=== PATIENT | male | born 1990 | race Caucasian/White ===

== ENCOUNTER 2020-02-19 12:58 | Emergency (ER) | payer BC, OTHER ==
--- OUTSIDE RECORDS SUMMARY | 2020-02-19 13:01 | XMS REPORT | Continuity of Care Document ---
:1990 Author Organization [facility] t Address [address] [place] [address] Care Team Providers Name Role Phone Unavailable Unavailable Unavailable Payers Payer Name Policy Type Policy Number Effective Date Expiration Date S ource Problems This patient has no known problems. Allergies, Adverse Reactions, Alerts This patient has no known allergies or adverse reactions. Medications This patient has no known medications. Procedures This patient has no known procedures. Results This patient has no known results.
--- NOTE | 2020-02-19 15:08 | RAD REPORT ---
EXAM DESCRIPTION: CT - Head Brain Wo Cont - 02/19/2020 2:48 pm CLINICAL HISTORY: DIZZY COMPARISON: No comparisons TECHNIQUE: Axial 5 mm thick images of the head were obtained without IV contrast. All CT scans are performed using dose optimization technique as appropriate and may include automated exposure control or mA/KV adjustment according to patient size. FINDINGS: No intracranial hemorrhage, mass, edema or shift of mid-line structures. No acute infarcti on changes seen. No abnormal extra-axial fluid collections. Ventricles are normal. Mastoid air cells and visualized portions of the paranasal sinuses are clear. No acute bony findings. IMPRESSION: Negative non-contrast CT head examination.
[2020-02-19 15:21] LABS: Basophils % 0.4 % (0-1.3); Hematocrit 46.8 % (39.6-49.0); Lymphocytes % 34.5 % (15.3-44.8); MPV 10.3 fL (7.6-11.3); RBC Red Blood Cell Count 5.36 M/uL (4.33-5.43)
[2020-02-19 15:22] LABS: Protime INR 1.01
--- NOTE | 2020-02-19 15:29 | RAD REPORT ---
EXAM DESCRIPTION: Brooke Single View02/19/2020 3:06 pm CLINICAL HISTORY: Dizziness COMPARISON: none FINDINGS: The lungs appear clear of acute infiltrate. The heart is normal size IMPRESSION: No acute abnormalities displayed
[2020-02-19 15:38] LABS: ALT/SGPT 62 U/L (12-78); AST/SGOT 25 U/L (15-37); Albumin 4.4 g/dL (3.4-5.0); Alkaline Phosphatase 71 U/L (45-117); BUN Blood Urea Nitrogen 16 mg/dL (7-18); Bicarbonate 27 mmol/L (21-32); Bilirubin Direct < 0.1 mg/dL (0-0.2); Bilirubin Total 0.6 mg/dL (0.2-1.0); Glucose Level 101 mg/dL (74-106); Magnesium 2.4 mg/dL (1.8-2.4); Potassium 4.1 mmol/L (3.5-5.1); Protein, Total 7.5 g/dL (6.4-8.2); Sodium Level 139 mmol/L (136-145); Troponin (Emerg Dept Use Only) < 0.02 ng/mL (0.0-0.045)
--- NOTE | 2020-02-19 15:53 | EDPHYS ---
Physician Documentation [facility] Name: Ronak Lemons III Age: 29 yrs Sex: Male : 1990 Arrival Date: 02/19/2020 Time: 13:03 Bed 15 Private MD: ED Physician Jose Moreno HPI: 02/18 14:35 This 29 yrs old Male presents to ER via Ambulatory with complaints of cp Dizziness. 14:35 The patient presents with dizziness. cp 14:35 Onset: The symptoms/episode began/occurred single episode while at work today. cp 14:35 Associated signs and symptoms: Pertinent negatives: abdominal pain, chest pain, cp diaphoresis, focal weakness, palpitations, shortness of breath, syncope. Severity of symptoms: in the emergency department the symptoms have resolved. Patient's baseline: Neuro: alert and fully oriented, Motor: no deficits, Ambulation: walks without assistance, Speech: normal. Historical: - Allergies: 13:24 Hydrocodone; sv - PSHx: 13:24 Appendectomy; Foot surgery for deformed bones; sv - Immunization history:: Adult Immunizations up to date. - Social history:: Smoking status: unknown. ROS: 14:40 Constitutional: Negative for body aches, chills, fever, poor PO intake. cp 14:40 Eyes: Negative for injury, pain, redness, and discharge. cp Exam: 14:45 Constitutional: The patient appears in no acute distress, alert, awake, cp non-diaphoretic, non-toxic, well developed, well nourished. 14:45 Head/Face: Normocephalic, atraumatic. cp 14:45 Eyes: Periorbital structures: appear normal, Conjunctiva: normal, no exudate, no injection, Lids and lashes: appear normal, bilaterally. 14:45 ENT: External ear(s): are unremarkable, Nose: is normal, Mouth: Lips: moist, Oral mucosa: moist, Posterior pharynx: Airway: no evidence of obstruction, patent. 14:45 Neck: ROM/movement: is normal, is supple, without pain, no range of motions limitations, no nuchal rigidity. 14:45 Chest/axilla: Inspection: normal, Palpation: is normal, no crepitus, no tenderness. 14:45 Cardiovascular: Rate: normal, Rhythm: regular, Edema: is not appreciated, JVD: is not appreciated. 14:45 Respiratory: the patient does not display signs of respiratory distress, Respirations: normal, no use of accessory muscles, no retractions, labored breathing, is not present, Breath sounds: are clear throughout, no decreased breath sounds, no stridor, no wheezing. 14:45 Abdomen/GI: Exam negative for discomfort, distension, guarding, Inspection: abdomen appears normal. 14:45 Neuro: Orientation: to person, place \T\ time. Mentation: is normal, Cerebellar function: is grossly normal, Motor: moves all fours, strength is normal, Sensation: is normal. 15:10 ECG was reviewed by the Attending Physician. cp Vital Signs: 13:24 BP 135 / 85; Pulse 86; Resp 16; Temp 98.0; Pulse Ox 100% ; Weight 86.18 kg; Height 5 sv ft. 9 in. (175.26 cm); 15:00 BP 121 / 78 Supine; Pulse 77; ll1 15:00 BP 123 / 80 Sitting; Pulse 75; ll1 15:00 BP 128 / 90 Standing; Pulse 82; ll1 16:39 BP 104 / 66; Pulse 83; Resp 17; Pulse Ox 100% ; Pain 0/10; ll1 13:24 Body Mass Index 28.06 (86.18 kg, 175.26 cm) sv MDM: 14:32 Patient medically screened. cp 15:51 Data reviewed: vital signs, nurses notes, lab test result(s), EKG, radiologic studies, cp CT scan. 15:51 Differential diagnosis: cardiac arrhythmia, hypovolemia, idiopathic dizziness, TIA, cp vertigo. Test interpretation: by ED physician or midlevel provider: ECG. Counseling: I had a detailed discussion with the patient and/or guardian regarding: the historical points, exam findings, and any diagnostic results supporting the discharge/admit diagnosis, lab results, radiology results, to return to the emergency department if symptoms worsen or persist or if there are any questions or concerns that arise at home. 02/18 14:27 Order name: Basic Metabolic Panel; Complete Time: 15:43 cp 02/18 15:44 Interpretation: Normal except: GFR 67. cp 02/18 14:27 Order name: CBC with Diff; Complete Time: 15:43 cp 02/18 14:27 Order name: LFT's; Complete Time: 15:43 cp 02/18 14:27 Order name: Magnesium; Complete Time: 15:43 cp 02/18 14:27 Order name: PT-INR; Complete Time: 15:43 cp 02/18 14:27 Order name: Troponin (emerg Dept Use Only); Complete Time: 15:43 cp 02/18 14:21 Order name: Orthostatics; Complete Time: 14:57 cp 02/18 14:27 Order name: XRAY Chest (1 view); Complete Time: 15:43 cp 02/18 14:27 Order name: EKG; Complete Time: 14:29 cp 02/18 14:27 Order name: Cardiac monitoring; Complete Time: 15:12 cp 02/18 14:27 Order name: EKG - Nurse/Tech; Complete Time: 15:12 cp 02/18 14:34 Order name: Head Brain Wo Cont; Complete Time: 15:43 EDMS 02/18 16:22 Order name: COVID-19 bd 02/18 14:27 Order name: IV Saline Lock; Complete Time: 14:44 cp 02/18 14:27 Order name: Labs collected and sent; Complete Time: 14:44 cp 02/18 14:27 Order name: O2 Per Protocol; Complete Time: 14:44 cp 02/18 14:27 Order name: O2 Sat Monitoring; Complete Time: 14:44 cp EC:10 Rate is 72 beats/min. Rhythm is regular. NC interval is normal. QRS interval is normal. cp QT interval is normal. T waves are Inverted in lead aVR. Interpreted by me. Reviewed by me. Administered Medications: No medications were administered Disposition: 02/19 08:01 Co-signature as Attending Physician, Jose Moreno MD I agree with the assessment and kdr plan of care. Disposition: 02/19/20 15:52 Discharged to Home. Impression: Dizziness and giddiness. - Condition is Stable. - Discharge Instructions: Allergies, Adult, Dizziness. - Medication Reconciliation Form, Thank You Letter, Antibiotic Education, Prescription Opioid Use, Work release form form. - Follow up: Private Physician; When: 1 - 2 days; Reason: Worsening of condition. - Problem is new. - Symptoms have improved. Signatures: Dispatcher [employer] EDEloisa Sandoval RN RN sv Rittger, Kevin, MD MD kdr Abram Cano PA PA cp Edna Bills RN RN ll1 Corrections: (The following items were deleted from the chart) 02/18 14:47 14:27 Head Brain Wo Cont+CT.RAD.BRZ ordered. EDMS EDMS 16:40 15:52 02/19/2020 15:52 Discharged to Home. Impression: Dizziness and giddiness. ll1 Condition is Stable. Forms are Medication Reconciliation Form, Thank You Letter, Antibiotic Education, Prescription Opioid Use. Follow up: Private Physician; When: 1 - 2 days; Reason: Worsening of condition. Problem is new. Symptoms have improved. cp
--- NOTE | 2020-02-19 15:53 | ER ---
Nurse's Notes [facility] Name: Ronak Lemons III Age: 29 yrs Sex: Male : 1990 Arrival Date: 02/19/2020 Time: 13:03 Bed 15 Private MD: Diagnosis: Dizziness and giddiness Presentation: 02/18 13:22 Chief complaint: Patient states: dizziness started 0900 today. States that its worse sv from sitting to standing. Coronavirus screen: Client denies travel out of the [place] in the last 14 days. At this time, the client does not indicate any symptoms associated with coronavirus-19. Ebola Screen: No symptoms or risks identified at this time. Risk Assessment: Do you want to hurt yourself or someone else? Patient reports no desire to harm self or others. Onset of symptoms was February 19, 2020. 13:22 Method Of Arrival: Ambulatory sv 13:22 Acuity: LIZZETH 3 sv 13:24 Initial Sepsis Screen: Does the patient meet any 2 criteria? No. Patient's initial sv sepsis screen is negative. Does the patient have a suspected source of infection? No. Patient's initial sepsis screen is negative. Triage Assessment: 13:26 General: Appears in no apparent distress. comfortable, Behavior is calm, cooperative, sv appropriate for age. Neuro: Level of Consciousness is awake, alert, obeys commands, Oriented to person, place, time, situation, Gait is steady. Respiratory: Respiratory effort is even, unlabored. Historical: - Allergies: 13:24 Hydrocodone; sv - PSHx: 13:24 Appendectomy; Foot surgery for deformed bones; sv - Immunization history:: Adult Immunizations up to date. - Social history:: Smoking status: unknown. Screenin:00 Abuse screen: Denies threats or abuse. Nutritional screening: No deficits noted. ll1 Tuberculosis screening: No symptoms or risk factors identified. Fall Risk IV access (20 points). Total Cueva Fall Scale indicates No Risk (0-24 pts). Assessment: 14:59 General: Appears in no apparent distress. Behavior is calm, cooperative, appropriate ll1 for age. Pain: Denies pain. Neuro: Level of Consciousness is awake, alert, obeys commands, Oriented to person, place, time, situation, Appropriate for age Denture Waxer are equal bilaterally Moves all extremities. Full function Gait is steady, Speech is normal, Facial symmetry appears normal, Reports dizziness. Cardiovascular: No deficits noted. Respiratory: No deficits noted. GI: No deficits noted. 16:00 Reassessment: No changes from previously documented assessment. Patient and/or family ll1 updated on plan of care and expected duration. Pain level reassessed. Patient is alert, oriented x 3, equal unlabored respirations, skin warm/dry/pink. Vital Signs: 13:24 BP 135 / 85; Pulse 86; Resp 16; Temp 98.0; Pulse Ox 100% ; Weight 86.18 kg; Height 5 sv ft. 9 in. (175.26 cm); 15:00 BP 121 / 78 Supine; Pulse 77; ll1 15:00 BP 123 / 80 Sitting; Pulse 75; ll1 15:00 BP 128 / 90 Standing; Pulse 82; ll1 16:39 BP 104 / 66; Pulse 83; Resp 17; Pulse Ox 100% ; Pain 0/10; ll1 13:24 Body Mass Index 28.06 (86.18 kg, 175.26 cm) sv ED Course: 13:03 Patient arrived in ED. rg4 13:22 Arm band placed on. sv 13:24 Triage completed. sv 14:08 Edna Bills, ELLIS is Primary Nurse. ll1 14:20 Abram Cano PA is PHCP. cp 14:20 Jose Moreno MD is Attending Physician. cp 14:48 Head Brain Wo Cont In Process Unspecified. EDMS 14:59 Inserted saline lock: 20 gauge in right antecubital area, using aseptic technique. ll1 Blood collected. 15:01 Patient has correct armband on for positive identification. Bed in low position. Call ll1 light in reach. Side rails up X 1. Pulse ox on. NIBP on. 15:06 XRAY Chest (1 view) In Process Unspecified. EDMS 15:11 EKG done, by ED staff, reviewed by Abram PRICE. jp3 15:12 property assessment monitor on. jp3 16:39 IV discontinued, intact, bleeding controlled, No redness/swelling at site. Pressure ll1 dressing applied. 16:39 No provider procedures requiring assistance completed. ll1 Administered Medications: No medications were administered Outcome: 15:52 Discharge ordered by . cp 16:40 Discharged to home ambulatory. ll1 16:40 Condition: stable 16:40 Discharge instructions given to patient, Instructed on discharge instructions, follow up and referral plans. Demonstrated understanding of instructions, follow-up care. 16:40 Patient left the ED. ll1 Addendum: 02/24/2020 07:34 Addendum: COVID-19 Result: Negative result given to RN to notify pt. Attempted to i w contact pt regarding negative COVID-19 swab results. Left voice mail. 15:24 Addendum: COVID-19 Result: Negative result given to RN to notify pt. Notified pt of i w negative COVID 19 swab results. Pt advised that even with a negative test result they should remain in isolation until symptom free for 3 days without medication. Pt also advised to return to the ED for worsening symptoms. Signatures: Dispatcher [employer] EDEloisa Sandoval RN Yessi Carias RN RN iw Page, Corey, PA PA cp Garcia, Rubi rg4 Marcos Gloria jp3 Edna Bills RN RN ll1 Corrections: (The following items were deleted from the chart) 02/18 13:26 13:24 Resp 16bpm; Pulse Ox 100%; Temp 98.0F; 86.18 kg; Height 5 ft. 9 in.; BMI: 28.0; svsv
[2020-02-19 19:13] VITALS: TEMP 98; O2SAT 100
[2020-02-19 19:16] VITALS: BP 104/66
== END 2020-02-19 16:40 | disposition home or self-care (01) ==
LOC: ER 12:58
DX: R42 Dizziness and giddiness (principal); Z20.828 Contact with and (suspected) exposure to other viral communicable diseases; Z88.5 Allergy status to narcotic agent
CPT/HCPCS: 93005; 85025; 80048; 36415; 83735; 85610; 80076; 84484; 70450; 71045; 99284; U0002

== ENCOUNTER 2020-11-11 11:04 | Emergency (ER) | payer BC ==
--- OUTSIDE RECORDS SUMMARY | 2020-11-11 11:07 | XMS REPORT | Continuity of Care Document ---
:1990 Author Organization [facility] t Address [address] [place] [address] Care Team Providers Name Role Phone Vicente LAMBERT Y Primary Care Physician Vaccine, Family Attending Clinician Unavailable Vicente LAMBERT Y Attending Clinician Payers Payer Name Policy Type Policy Effective Date Expiration Date Sour ce Number BCBS OF [id number] 2017 [place] o f IOWABCBS OF 00:00:00 [id number] [place] [phone] [id number], [place] [address]YTH/POS Problems Condition Condition Condition Status Onset Resolution Last Treating Co mments Source Name Details Category Date Date Treatment Clinician Date No known No known Disease Unive rs active active ity of problems problems [facility] Allergies, Adverse Reactions, Alerts Allergy Allergy Status Severity Reaction(s) Onset Inactive Treating Comm ents Source Name Type Date Date Clinician Hydrocod Propensi Active Itching 2018-0 Unive rs one ty to 4-12 ity of adverse 00:00: [place] reaction [address] [place] [address] s [place] Social History Social Habit Start Date Stop Date Quantity Comments Source Cigarettes smoked 2020-03-04 2020-03-04 Univers ity of current (pack per 00:00:00 00:00:00 ) - Reported Branch Tobacco use and 2020-03-04 2020-03-04 Former user Universi ty of exposure 00:00:00 00:00:00 [facility] History of tobacco 2017-05-28 User of Univer sity of use 00:00:00 smokeless [facility] tobacco [place] Sex Ass[birth year] Universit y of 00:00:00 00:00:00 [facility] Smoking Status Start Date Stop Date Source Former smoker 2020-03-04 00:00:00 2020-03-04 00:00:00 [facility] Medications Ordered Filled Start Stop Current Ordering Indication Dosage Frequency Signature Comments Components Source Medication Medication Date Date Medication? Clinician (SIG) Name Name montelukast 2019-0 Yes montelukas Univers 10 mg 4-12 t 10 mg ity of tablet 19:42: tablet [place] 10 Take 1 Medical tablet Branch every day by oral route for 30 days. azelastine- 20190 Yes [id number] 1{spray Use 1 Univers fluticasone 4-12 } [place] in ity of (DYMISTA) 00:00: each [place] 137-50 00 nostril 2 Medical mcg/spray (two) Branch nasal spray times daily. Immunizations Ordered Filled Immunization Date Status Comments Sourc e Immunization Name Name SARS-COV-2 COVID-19 2020-10-27 Completed Unive rsity of PFIZER VACCINE 00:00:00 [facility] SARS-COV-2 COVID-19 2020-10-06 Completed Unive rsity of PFIZER VACCINE 00:00:00 [facility] Procedures Procedure Date / Time Performed Performing Clinician Sourc e SARS-COV-2 COVID-19 2020-10-27 15:12:43 Doctor Unassigned, No [facility] [place] VACCINE,0.3ML,IM Name Medical Branch (PFIZER) Encounters Start End Encounter Admission Attending Care Care Encounter Source Date/Time Date/Time Type Type Clinicians Facility Department ID 2020-10-27 2020-10-27 Imm/Inj Vaccine, [place] Family [place] 1.2. [id number] Univers 10:04:47 10:14:47 Visit Jemal Zhang Pediatric [id number] ity of s and [id number] Yaron s Adult [id number] [facility] Primary [facility] Results This patient has no known results.
[2020-11-11 13:48] LABS: SARS-COV-2 RT PCR NEGATIVE (NEGATIVE)
--- NOTE | 2020-11-11 14:00 | EDPHYS ---
Physician Documentation [facility] Name: Ronak Lemons III Age: 30 yrs Sex: Male : 1990 Arrival Date: 11/11/2020 Time: 11:07 Bed 4 Private MD: ED Physician Kip Freeman HPI: 11/11 12:06 This 30 yrs old Male presents to ER via Ambulatory with complaints of URI jr8 symptoms. 12:06 Onset: The symptoms/episode began/occurred gradually, 2 day(s) ago. The patient has not jr8 experienced similar symptoms in the past. The patient has not recently seen a physician. This is a 30-year-old male patient that presented to emergency room for URI like symptoms. Stated that his had similar symptoms last week and has been following that same path. Wanted to make sure he did not have Covid. Patient states that he has had headache, body aches chills, congestion.. Historical: - Allergies: 11:21 HYDROCODONE; jl7 - Home Meds: 11:21 None [Active]; jl7 - PMHx: 11:21 None; jl7 - PSHx: 11:21 Appendectomy; jl7 - Immunization history:: Adult Immunizations up to date, Client reports receiving the 2nd dose of the Covid vaccine. - Social history:: Smoking status: Reported history of juuling and/or vaping. ROS: 12:06 Cardiovascular: Negative for chest pain, palpitations, and edema, Respiratory: Negative jr8 for shortness of breath, cough, wheezing, and pleuritic chest pain, Abdomen/GI: Negative for abdominal pain, nausea, vomiting, diarrhea, and constipation, Back: Negative for injury and pain, MS/Extremity: Negative for injury and deformity, Skin: Negative for injury, rash, and discoloration. 12:06 Constitutional: Positive for body aches, chills. 12:06 ENT: Positive for rhinorrhea, sinus congestion. 12:06 Neuro: Positive for headache. Exam: 12:06 Constitutional: This is a well developed, well nourished patient who is awake, alert, jr8 and in no acute distress. ENT: Nares patent. No nasal discharge, no septal abnormalities noted. Tympanic membranes are normal and external auditory canals are clear. Oropharynx with no redness, swelling, or masses, exudates, or evidence of obstruction, uvula midline. Mucous membranes moist. Neck: Trachea midline, no thyromegaly or masses palpated, and no cervical lymphadenopathy. Supple, full range of motion without nuchal rigidity, or vertebral point tenderness. No Meningismus. Cardiovascular: Regular rate and rhythm with a normal S1 and S2. No gallops, murmurs, or rubs. Normal PMI, no JVD. No pulse deficits. Respiratory: Lungs have equal breath sounds bilaterally, clear to auscultation and percussion. No rales, rhonchi or wheezes noted. No increased work of breathing, no retractions or nasal flaring. Abdomen/GI: Soft, non-tender, with normal bowel sounds. No distension or tympany. No guarding or rebound. No evidence of tenderness throughout. Back: No spinal tenderness. No costovertebral tenderness. Full range of motion. Skin: Warm, dry with normal turgor. Normal color with no rashes, no lesions, and no evidence of cellulitis. MS/ Extremity: Pulses equal, no cyanosis. Neurovascular intact. Full, normal range of motion. Neuro: Awake and alert, GCS 15, oriented to person, place, time, and situation. Cranial nerves II-XII grossly intact. Motor strength 5/5 in all extremities. Sensory grossly intact. Vital Signs: 11:17 BP 130 / 84; Pulse 88; Resp 17; Temp 97.8; Pulse Ox 100% ; Weight 91.17 kg; Height 5 jl7 ft. 9 in. (175.26 cm); Pain 1/10; 11:45 BP 137 / 89; Pulse 81; Resp 17; Pulse Ox 97% on R/A; ap3 12:57 BP 131 / 83; Pulse 82; Resp 15; Pulse Ox 99% on R/A; hb 13:39 BP 130 / 80; Pulse 89; Pulse Ox 99% on R/A; ap3 11:17 Body Mass Index 29.68 (91.17 kg, 175.26 cm) jl7 MDM: 11:24 Patient medically screened. 8 13:59 Data reviewed: vital signs, nurses notes, and as a result, I will discharge patient. jr8 Data interpreted: Pulse oximetry: on room air is 99 %. Interpretation: normal. Counseling: I had a detailed discussion with the patient and/or guardian regarding: the historical points, exam findings, and any diagnostic results supporting the discharge/admit diagnosis, lab results, the need for outpatient follow up, a family practitioner, to return to the emergency department if symptoms worsen or persist or if there are any questions or concerns that arise at home. 11/11 13:48 Order name: COVID-19/FLU A+B; Complete Time: 13:59 EDMS Administered Medications: No medications were administered Disposition: 15:42 Co-signature as Attending Physician, Kip Freeman MD I agree with the assessment and rn plan of care. Attestation: The patient's history, exam findings, diagnostics, and a summary of any interventions or procedures was reviewed in detail with Jalen PRICE. Disposition Summary: 11/11/20 14:00 Discharge Ordered Location: Home jr8 Problem: new jr8 Symptoms: have improved jr8 Condition: Stable jr8 Diagnosis - Acute upper respiratory infection, unspecified jr8 Followup: jr8 - With: Private Physician - When: As needed - Reason: Recheck today's complaints, Continuance of care, Re-evaluation by your physician Discharge Instructions: - Discharge Summary Sheet jr8 - Upper Respiratory Infection, Adult jr8 Forms: - Medication Reconciliation Form jr8 - Thank You Letter jr8 - Antibiotic Education jr8 - Prescription Opioid Use jr8 Prescriptions: - Prednisone 20 mg Oral Tablet - take 1 tablet by ORAL route once daily for 5 days; 5 tablet; Refills: 0, jr8 Product Selection Permitted - Tessalon Perles 100 mg Oral Capsule - take 1 capsule by ORAL route every 8 hours As needed; 15 capsule; Refills: 0, jr8 Product Selection Permitted Signatures: Dispatcher [employer] EDMS Kip Freeman MD MD rn Roszak, Josh, PA PA jr8 Mitzi Brown RN RN jl7 Corrections: (The following items were deleted from the chart) 13:06 11:42 CORONAVIRUS+MR.LAB.BRZ ordered. EDMS EDMS 13:07 11:42 Influenza Screen (A \T\ B)+BA.LAB.BRZ ordered. EDMS EDMS
--- NOTE | 2020-11-11 14:00 | ER ---
Nurse's Notes [facility] Name: Ronak Lemons III Age: 30 yrs Sex: Male : 1990 Arrival Date: 11/11/2020 Time: 11:07 Bed 4 Private MD: Diagnosis: Acute upper respiratory infection, unspecified Presentation: 11/11 11:17 Chief complaint: Patient states: Exposure to hydrochloric acid at 0800 until 1000 this jl7 morning, showered, reports skin and eyes were burning, mostly resolved. Went to [facility] but they wont see me because I have a headache, body aches and congestion for x 2 days so I'll need a Covid test. Coronavirus screen: Vaccine status: Patient reports receiving the 2nd dose of the covid vaccine. Date October 11, 2020 Pfizer congestion, headache, Client presents with at least one sign or symptom that may indicate coronavirus-19. Standard/surgical mask placed on the client. Provider contacted for isolation considerations. Ebola Screen: No symptoms or risks identified at this time. Initial Sepsis Screen: Does the patient meet any 2 criteria? No. Patient's initial sepsis screen is negative. Does the patient have a suspected source of infection? No. Patient's initial sepsis screen is negative. Risk Assessment: Do you want to hurt yourself or someone else?. Onset of symptoms was November 11, 2020 at 08:00. Care prior to arrival: None. 11:17 Method Of Arrival: Ambulatory jl7 11:17 Acuity: LIZZETH 3 jl7 Triage Assessment: 11:21 General: Appears in no apparent distress. uncomfortable, Behavior is calm, cooperative, jl7 appropriate for age. Pain: Denies pain. Historical: - Allergies: 11:21 HYDROCODONE; jl7 - Home Meds: 11:21 None [Active]; jl7 - PMHx: 11:21 None; jl7 - PSHx: 11:21 Appendectomy; jl7 - Immunization history:: Adult Immunizations up to date, Client reports receiving the 2nd dose of the Covid vaccine. - Social history:: Smoking status: Reported history of juuling and/or vaping. Screenin:46 Abuse screen: Denies threats or abuse. Nutritional screening: No deficits noted. ap3 Tuberculosis screening: No symptoms or risk factors identified. Fall Risk None identified. Assessment: 12:07 General: Appears in no apparent distress. comfortable, Behavior is calm, cooperative, ap3 appropriate for age. Pain: Complains of pain in generalized body aches. Neuro: Level of Consciousness is awake, alert, obeys commands, Oriented to person, place, time, situation, Appropriate for age Gait is steady, Speech is normal. 12:08 Cardiovascular: Capillary refill Patient's skin is warm and dry. Respiratory: Airway is ap3 patent Respiratory effort is even, unlabored, Respiratory pattern is regular, symmetrical, Denies shortness of breath. 12:57 Reassessment: Patient appears in no apparent distress at this time. Patient and/or hb family updated on plan of care and expected duration. Pain level reassessed. Patient is alert, oriented x 3, equal unlabored respirations, skin warm/dry/pink. Vital Signs: 11:17 BP 130 / 84; Pulse 88; Resp 17; Temp 97.8; Pulse Ox 100% ; Weight 91.17 kg; Height 5 jl7 ft. 9 in. (175.26 cm); Pain 1/10; 11:45 BP 137 / 89; Pulse 81; Resp 17; Pulse Ox 97% on R/A; ap3 12:57 BP 131 / 83; Pulse 82; Resp 15; Pulse Ox 99% on R/A; hb 13:39 BP 130 / 80; Pulse 89; Pulse Ox 99% on R/A; ap3 11:17 Body Mass Index 29.68 (91.17 kg, 175.26 cm) jl7 ED Course: 11:07 Patient arrived in ED. mr 11:21 Triage completed. jl7 11:21 Arm band placed on right wrist. jl7 11:24 Jalen Poon PA is PHCP. jr8 11:24 Kip Freeman MD is Attending Physician. jr8 11:46 Patient has correct armband on for positive identification. Bed in low position. Call ap3 light in reach. Side rails up X2. residential monitor on. Pulse ox on. NIBP on. Door closed. Noise minimized. 14:05 No provider procedures requiring assistance completed. Patient did not have IV access ap3 during this emergency room visit. Administered Medications: No medications were administered Outcome: 14:00 Discharge ordered by . jr8 14:05 Discharged to home ambulatory. ap3 14:05 Condition: good 14:05 Discharge instructions given to patient, Instructed on discharge instructions, follow up and referral plans. medication usage, Demonstrated understanding of instructions, follow-up care, medications, Prescriptions given X 2. 14:05 Patient left the ED. ap3 Signatures: Luciana London mr CleveJalen PA PA jr8 Jeaneth Sparrow RN RN hb Leal, Jahala, RN RN jl7 Kellie Ahuja RN RN ap3
[2020-11-11 14:36] VITALS: TEMP 97.8
[2020-11-11 14:39] VITALS: O2SAT 99
[2020-11-11 14:41] VITALS: BP 130/80
== END 2020-11-11 14:05 | disposition home or self-care (01) ==
LOC: ER 11:04
DX: J06.9 Acute upper respiratory infection, unspecified (principal); Z20.822 Contact with and (suspected) exposure to COVID-19
CPT/HCPCS: 0240U; 99284

== ENCOUNTER → 2023-03-10 | Emergency (ER) | payer BC, OTHER ==
[~2023-03-10] MED LIST: CEPHALEXIN 250 MG CAP ONE; TDAP (DIPHTH,PERTUSS(ACELL),TET VAC) 0.5 ML VIAL IMVAC ONE
--- OUTSIDE RECORDS SUMMARY | 2023-03-10 20:28 | XMS REPORT | Continuity of Care Document ---
Author Name Unknown Address [address] [facility] [address] [place] [address] [facility] thconnect Address [address] [facility] [address] [place] [address] Care Team Providers Care Senior Program Planner Name Role Phone Camilo Zhang MD Primary Care Physician [phone] Vaccine, [place] Family Attending Clinician Camilo Felton MD Attending Clinician [phone] CAMILO ZHANG Attending Clinician Unavailable Payers Payer Name Policy Type Policy Number Effective Date Expiration Date Source [id number] [id number] [address], [place] [address]MRK/POS [id number] 2017 00:00:00 [facility] Problems Condition Name Condition Details Condition Category Status Onset Date Resolution Date Last Treatment Date Treating Clinician Comments Source No known active problems No known active problems Disease [facility] Allergies, Adverse Reactions, Alerts Allergy Name Allergy Type Status Severity Reaction(s) Onset Date Inactive Date Treating Clinician Comments Source Hydrocod one Propensi ty to adverse reaction s Active Itching 06-08 00:00: 00 [facility] HYDROCOD ONE DRUG INGREDI Active ITCHING 06-08 00:00: 00 [facility] Social History Social Habit Start Date Stop Date Quantity Comments Source Cigarettes smoked current (pack per day) - Reported 2020-03-04 00:00:00 2020-03-04 00:00:00 [facility] Tobacco use and exposure 2020-03-04 00:00:00 2020-03-04 00:00:00 Former user [facility] History of tobacco use 2017-05-28 00:00:00 User of smokeless tobacco [facility] Sex Assigned At 1990 00:00:00 1990 00:00:00 [facility] Smoking Status Start Date Stop Date Source Former smoker 2020-03-04 00:00:00 2020-03-04 00:00:00 [facility] Medications Ordered Medication Name Filled Medication Name Start Date Stop Date Current Medication? Ordering Clinician Indication Dosage Frequency Signature (SIG) Comments Components Source montelukast 10 mg tablet 06-08 19:42: 10 Yes montelukas t 10 mg tablet Take 1 tablet every day by oral route for 30 days. [facility] azelastine- fluticasone (DYMISTA) 137-50 mcg/spray nasal spray 06-08 00:00: 00 Yes [id number] 1{spray } Use 1 [place] in each nostril 2 (two) times daily. [facility] Procedures Procedure Date / Time Performed Performing Clinicia n Source SARS-COV-2 COVID-19 VACCINE,0.3ML,IM (PFIZER) 2020-10-27 15:12:43 Doctor Unassigned, [place] [facility] Encounters Start Date/Time End Date/Time Encounter Type Admission Type Attending Clinicians Care Facility Care Department Encounter ID Source 2020-10-27 10:04:47 2020-10-27 10:14:47 Imm[facility]Inj Visit [facility] [id number] [facility] 2020-10-27 09:40:00 2020-10-27 09:40:00 Outpatient CAMILO SNEED [facility] [id number] [facility] 2020-10-06 09:30:00 2020-10-06 09:30:00 Outpatient CAMILO SNEED [facility] [id number] [facility] 2020-02-27 15:15:00 2020-02-27 15:15:00 Outpatient CAMILO SNEED [facility] [id number] [facility]
--- NOTE | 2023-03-10 21:15 | EDPHYS ---
Physician Documentation [facility] Name: Ronak Lemons III Age: 32 yrs Sex: Male : 1990 Arrival Date: 03/10/2023 Time: 20:26 Bed DX4 Private MD: ED Physician Imtiaz Cobb HPI: 03/10 21:10 This 32 yrs old Male presents to ER via Ambulatory with complaints of Puncture Wound To cp Hand. 21:10 The patient or guardian reports a puncture wound. cp 21:10 The complaints affect the palm of right hand. Context: occurred at work from exposed cp piece of wire. 21:10 Onset: The symptoms/episode began/occurred today. Associated signs and symptoms: The cp patient has no apparent associated signs or symptoms. Historical: - Allergies: 21:00 HYDROCODONE; km8 - PMHx: 21:00 None; km8 - PSHx: 21:00 Appendectomy; km8 - Immunization history:: Last tetanus immunization: unknown. - Social history:: Smoking status: Patient reports use of chewing tobacco. ROS: 21:15 Skin: Positive for puncture, of the palm of right hand, cp 21:15 Constitutional: Negative for fever, cp 21:15 All other systems are negative, Exam: 21:20 Constitutional: The patient appears in no acute distress, alert, awake, comfortable, cp non-toxic, well developed, well nourished, 21:20 Musculoskeletal/extremity: Extremities: noted in the right hand: neurovascular intact, cp ROM: full active range of motion, in the right hand, 21:20 Skin: injury, that can be described as without bleeding, mild tenderness to palpation, puncture(s), that are deep, of the palm of right hand at base of middle finger, Vital Signs: 20:58 BP 133 / 94; Pulse 86; Resp 16; Temp 97.9(IR); Pulse Ox 98% on R/A; Weight 90.72 kg; km8 Height 5 ft. 9 in. (R); Pain 1/10; 20:58 Body Mass Index 29.53 (90.72 kg, 175.26 cm) km8 20:58 Pain Scale: Adult km8 [place] Coma Score: 21:10 Eye Response: spontaneous(4). Motor Response: obeys commands(6). Verbal Response: km8 oriented(5). Total: 15. MDM: 21:08 Patient medically screened. cp 21:13 Data reviewed: vital signs, nurses notes. cp 21:13 I considered the following discharge prescriptions or medication management in the emergency department Medications were administered in the Emergency Department. See MAR. Counseling: I had a detailed discussion with the patient and/or guardian regarding the historical points, exam findings, and any diagnostic results supporting the discharge/admit diagnosis, to return to the emergency department if symptoms worsen or persist or if there are any questions or concerns that arise at home. ED course: Discussed wound care and to f/u if increased swelling, erythema, drainage from wound. Administered Medications: 21:09 Drug: Tetanus-Diphtheria Toxoid IM Adult 0.5 ml IM once; Provide Vaccine Information km8 Statement (VIS). 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: [employer]; Exp: MonJul 19 2024; Lot #: [id number]; Series: 1 of 1; Patient Consent: Obtained; Date/Time: ; Source Name: Ronak Lemons III; Source Relationship: Self; Address Information: [facility] [place] [address]; ; Education: Provided; VIS Presented Date: ; VIS Publication: Tetanus/Diphtheria/Pertussis (Tdap/Td) VIS 03/22/2011 (historic)} Route: IM; Site: left deltoid; 21:33 Follow up: Response: No adverse reaction [facility] 21:09 Drug: Cephalexin PO 500 mg PO once Route: PO; km8 21:33 Follow up: Response: No adverse reaction km8 Disposition Summary: 03/10/23 21:14 Discharge Ordered Notes: Location: Home cp Problem: new cp Symptoms: have improved cp Condition: Stable cp Diagnosis - Puncture wound without foreign body of hand - right cp Followup: cp - With: Private Physician - When: 2 - 3 days - Reason: Worsening of condition Discharge Instructions: - Discharge Summary Sheet cp - Puncture Wound cp Forms: - Medication Reconciliation Form cp - Thank You Letter cp - Antibiotic Education cp - Prescription Opioid Use cp - Patient Portal Instructions cp - Leadership Thank You Letter cp Prescriptions: - Cephalexin 500 mg Oral Capsule - take 1 capsule ORAL route every 8 hours for 10 days; 30 capsule; Refills: 0, cp Product Selection Permitted Addendum: 03/13/2023 20:28 I was immediately available for consultation during this patient's visit. I did not e c2 personally see the patient or discuss the patient with the [facility]. . Signatures: Abram Cano PA PA cp Corral, Edwin, MD MD ec2 Binta Beatty, RN RN km8
--- NOTE | 2023-03-10 21:15 | ER ---
Nurse's Notes [facility] Name: Ronak Lemons III Age: 32 yrs Sex: Male : 1990 Arrival Date: 03/10/2023 Time: 20:26 Bed DX4 Private MD: Diagnosis: Puncture wound without foreign body of hand-right Presentation: 03/10 20:58 Chief complaint: Patient states: got punctured by a piece of wire while at work 6 hours km8 ago and needs a tetanus shot; puncture wound noted to right palm of hand, no bleeding. Coronavirus screen: Client denies travel out of the [place] in the last 14 days. Ebola Screen: No symptoms or risks identified at this time. Initial Sepsis Screen: Does the patient meet any 2 criteria? No. Patient's initial sepsis screen is negative. Does the patient have a suspected source of infection? No. Patient's initial sepsis screen is negative. Risk Assessment: Do you want to hurt yourself or someone else? Patient reports no desire to harm self or others. Onset of symptoms was March 10, 2023. 20:58 Method Of Arrival: Ambulatory km8 20:58 Acuity: LIZZETH 4 km8 Triage Assessment: 21:00 General: Appears in no apparent distress. comfortable, Behavior is calm, cooperative, km8 appropriate for age. Pain: Complains of pain in palm of right hand Pain currently is 1 out of 10 on a pain scale. EENT: No signs and/or symptoms were reported regarding the EENT system. Neuro: Level of Consciousness is awake, alert, obeys commands, Oriented to person, place, time, situation. Cardiovascular: Capillary refill < 3 seconds Patient's skin is warm and dry. Respiratory: Airway is patent Respiratory effort is even, unlabored, Respiratory pattern is regular, symmetrical. GI: No signs and/or symptoms were reported involving the gastrointestinal system. : No signs and/or symptoms were reported regarding the genitourinary system. Derm: Skin is intact, is healthy with good turgor, Skin is dry, Skin is pink, warm \T\ dry. normal, Skin temperature is warm Wound noted palm of right hand Wound is puncture. Musculoskeletal: No signs and/or symptoms reported regarding the musculoskeletal system. Circulation, motion, and sensation intact. Range of motion: intact in all extremities. 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 - Social history:: Smoking status: Patient reports use of chewing tobacco. Screenin:10 [facility] ED Fall Risk Assessment (Adult) History of falling in the last 3 months, 8 including since admission No falls in past 3 months (0 pts) Confusion or Disorientation No (0 pts) Intoxicated or Sedated No (0 pts) Impaired Gait No (0 pts) Mobility Assist Device Used No (0 pt) Altered Elimination No (0 pt) Score/Fall Risk Level 0 - 2 = Low Risk Oriented to surroundings, Maintained a safe environment, Educated pt \T\ family on fall prevention, incl call for assistance when getting out of bed, Assessed \T\ reinforced patient's understanding of fall precautions. Abuse screen: Denies threats or abuse. Denies injuries from another. Nutritional screening: No deficits noted. Tuberculosis screening: No symptoms or risk factors identified. Assessment: 21:10 General: see traige notes/assessment. [facility] [place] Vital Signs: 20:58 BP 133 / 94; Pulse 86; Resp 16; Temp 97.9(IR); Pulse Ox 98% on R/A; Weight 90.72 kg; 8 Height 5 ft. 9 in. (R); Pain 1/10; 20:58 Body Mass Index 29.53 (90.72 kg, 175.26 cm) km8 20:58 Pain Scale: Adult km8 [place] Coma Score: 21:10 Eye Response: spontaneous(4). Motor Response: obeys commands(6). Verbal Response: km8 oriented(5). Total: 15. ED Course: 20:29 Patient arrived in ED. ag3 20:30 Abram Cano PA is PHCP. cp 20:30 Imtiaz Cobb MD is Attending Physician. cp 20:59 Triage completed. km8 21:00 Arm band placed on right wrist. km8 21:10 Patient has correct armband on for positive identification. km8 21:10 No provider procedures requiring assistance completed. Patient did not have IV access km8 during this emergency room visit. 21:32 Provided Education on: d/c teaching. km8 Administered Medications: 21:09 Drug: Tetanus-Diphtheria Toxoid IM Adult 0.5 ml IM once; Provide Vaccine Information km8 Statement (VIS). 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 Questions and/or concerns km8 addressed. VIS edition date: October 02, 2020. Outcome: 21:14 Discharge ordered by . cp 21:32 Discharged to home ambulatory, km8 21:32 Condition: good 21:32 Discharge instructions given to patient, Instructed on discharge instructions, follow up and referral plans. medication usage, Demonstrated understanding of instructions, follow-up care, medications, Prescriptions given X 1, 21:33 Patient left the ED. km8 Signatures: Abram Cano PA PA cp Gomez, Harriet ag3 Binta Beatty, RN RN km8
[2023-03-11 01:37] VITALS: BP 133/94; TEMP 97.9; O2SAT 98
== END ==
LOC: ER 20:26
DX: S61.431A Puncture wound without foreign body of right hand, initial encounter (principal); F17.220 Nicotine dependence, chewing tobacco, uncomplicated; Z23 Encounter for immunization; Z88.5 Allergy status to narcotic agent
CPT/HCPCS: 90471; 99284

== ENCOUNTER 2023-08-25 17:50 | Emergency (ER) | payer BC, OTHER ==
--- OUTSIDE RECORDS SUMMARY | 2023-08-25 17:53 | XMS REPORT | Continuity of Care Document ---
Author Name Unknown Address [address] [facility] [place] [address] [facility] thconnect Address [address] [facility] [place] [address] Care Team Providers Care Manager Intermediate Name Role Phone Camilo Zhang MD Primary Care Physician [phone] VaccineGonzales Family Attending Clinician Camilo Felton MD Attending Clinician [phone] CAMILO ZHANG Attending Clinician Unavailable Payers Payer Name Policy Type Policy Number Effective Date Expiration Date Source [id number]Pres [phone] [address], [place] [address]AVF/POS [id number] 2017 00:00:00 [facility] Problems Condition Name Condition Details Condition Category Status Onset Date Resolution Date Last Treatment Date Treating Clinician Comments Source No known active problems No known active problems [facility]ies, Adverse Reactions, Alerts Allergy Name Allergy Type Status Severity Reaction(s) Onset Date Inactive Date Treating Clinician Comments Source Hydrocod one Propensi ty to adverse reaction s Active Itching 06-08 00:00: 00 [facility] HYDROCOD ONE DRUG INGREDI Active ITCHING 06-08 00:00: 00 [facility] Social History Social Habit Start Date Stop Date Quantity Comments Source Cigarettes smoked current (pack per day) - Reported 2020-03-04 00:00:00 2020-03-04 00:00:00 [facility] Tobacco use and exposure 2020-03-04 00:00:00 2020-03-04 00:00:00 Former user [facility] History of tobacco use 2017-05-28 00:00:00 User of smokeless tobacco [facility] Sex Assigned At 1990 00:00:00 1990 00:00:00 [facility] Smoking Status Start Date Stop Date Source Former smoker 2020-03-04 00:00:00 2020-03-04 00:00:00 [facility] Medications Ordered Medication Name Filled Medication Name Start Date Stop Date Current Medication? Ordering Clinician Indication Dosage Frequency Signature (SIG) Comments Components Source montelukast 10 mg tablet 06-08 19:42: 10 Yes montelukas t 10 mg tablet Take 1 tablet every day by oral route for 30 days. [facility] azelastine- fluticasone (DYMISTA) 137-50 mcg/spray nasal spray 06-08 00:00: 00 Yes [id number] 1{spray } Use 1 [place] in each nostril 2 (two) times daily. [facility] Procedures Procedure Date / Time Performed Performing Clinicia n Source SARS-COV-2 COVID-19 VACCINE,0.3ML,IM (PFIZER) 2020-10-27 15:12:43 Doctor Unassigned, [place] [facility] Encounters Start Date/Time End Date/Time Encounter Type Admission Type Attending Clinicians Care Facility Care Department Encounter ID Source 2020-10-27 10:04:47 2020-10-27 10:14:47 Imm/Inj Visit Vacc[facility], [facility] [id number] [facility] [id number] [facility] 2020-10-27 09:40:00 2020-10-27 09:40:00 Outpatient CAMILO SNEED [facility] [id number] [facility] 2020-10-06 09:30:00 2020-10-06 09:30:00 Outpatient CAMILO SNEED [facility] [id number] [facility] 2020-02-27 15:15:00 2020-02-27 15:15:00 Outpatient CAMILO SNEED [facility] [id number] [facility]
[2023-08-25] MEDS ORDERED: OXYMETAZOLINE HCL 0.05% 15ML NAS ONE ×2 (19:03→19:08)
--- NOTE | 2023-08-25 19:30 | ER ---
Nurse's Notes [facility] Name: Ronak Lemons III Age: 33 yrs Sex: Male : 1990 Arrival Date: 08/25/2023 Time: 17:50 Bed 9 Private MD: Diagnosis: Epistaxis-resolved Presentation: 08/24 18:16 Chief complaint: Patient states: "I was digging a booger out of my nose and I haven't aa5 stopped bleeding for about 2 or 3 hours now". Coronavirus screen: At this time, the client does not indicate any symptoms associated with coronavirus-19. Ebola Screen: Patient denies travel to an Ebola-affected area in the 21 days before illness onset. Initial Sepsis Screen: Does the patient meet any 2 criteria? No. Patient's initial sepsis screen is negative. Does the patient have a suspected source of infection? No. Patient's initial sepsis screen is negative. Risk Assessment: Do you want to hurt yourself or someone else? Patient reports no desire to harm self or others. Onset of symptoms was July 2023. 18:16 Method Of Arrival: Ambulatory aa5 18:16 Acuity: LIZZETH 3 aa5 Historical: - Allergies: 18:16 HYDROCODONE; aa5 - Home Meds: 18:18 None [Active]; aa5 - PMHx: 18:18 None; aa5 - PSHx: 18:16 Appendectomy; aa5 - Immunization history:: Adult Immunizations unknown. - Infectious Disease History:: Denies. - Social history:: Smoking status: Patient denies any tobacco usage or history of. Screenin:[address] [facility] ED Fall Risk Assessment (Adult) History of falling in the last 3 months, tl4 including since admission No falls in past 3 months (0 pts) Confusion or Disorientation No (0 pts) Intoxicated or Sedated No (0 pts) Impaired Gait No (0 pts) Mobility Assist Device Used No (0 pt) Altered Elimination No (0 pt) Score/Fall Risk Level 0 - 2 = Low Risk Oriented to surroundings, Maintained a safe environment, Educated pt \\T\\ family on fall prevention, incl call for assistance when getting out of bed, Assessed \\T\\ reinforced patient's understanding of fall precautions. Abuse screen: Denies threats or abuse. Denies injuries from another. Nutritional screening: No deficits noted. Tuberculosis screening: No symptoms or risk factors identified. Assessment: 18:52 General: Appears in no apparent distress. Behavior is calm, cooperative. Pain: Denies tl4 pain. Neuro: Level of Consciousness is awake, alert, obeys commands, Oriented to person, place, time, situation. Cardiovascular: Capillary refill < 3 seconds Patient's skin is warm and dry. Respiratory: Airway is patent Respiratory effort is even, unlabored, Respiratory pattern is regular, symmetrical, Breath sounds are clear bilaterally. GI: No signs and/or symptoms were reported involving the gastrointestinal system. : No signs and/or symptoms were reported regarding the genitourinary system. EENT: Nares with bleeding noted on right. Derm: No signs and/or symptoms reported regarding the dermatologic system. Musculoskeletal: No signs and/or symptoms reported regarding the musculoskeletal system. 19:54 Reassessment: Patient and/or family updated on plan of care and expected duration. Pain tl4 level reassessed. Patient is alert, oriented x 3, equal unlabored respirations, skin warm/dry/pink. Patient states symptoms have improved. Vital Signs: 18:16 BP 152 / 100; Pulse 97; Resp 18 S; Temp 97.5(TE); Pulse Ox 98% on R/A; Weight 91.63 kg aa5 (R); Height 5 ft. 8 in. (R); 19:54 BP 133 / 80; Pulse 88; Resp 18; Temp 98.1(O); Pulse Ox 100% ; tl4 18:16 Body Mass Index 30.72 (91.63 kg, 172.72 cm) aa5 ED Course: 17:53 Patient arrived in ED. ra3 18:03 Abram Cano PA is PHCP. cp 18:04 Zackery Wilkerson MD is Attending Physician. cp 18:16 Arm band placed on. aa5 18:17 Triage completed. aa5 19:01 Atul Emery, ELLIS is Primary Nurse. tl4 19:13 Patient has correct armband on for positive identification. Bed in low position. Call tl4 light in reach. Side rails up X 1. Provided Education on: ed process, call larios. Door closed. Noise minimized. Moved to private room. 19:14 No provider procedures requiring assistance completed. Patient did not have IV access tl4 during this emergency room visit. 19:29 Linnette Carranza MD is Referral Physician. cp Administered Medications: 19:11 Drug: Oxymetazoline Intranasal Drops (0.05 %) 1 sprays Intranasal once Route: tl4 Intranasal; Site: both nares; Medication: 19:13 VIS not applicable for this client. tl4 Outcome: 19:30 Discharge ordered by MD. cp 19:55 Discharged to home ambulatory, tl4 19:55 Condition: stable 19:55 Discharge instructions given to patient, Instructed on discharge instructions, follow up and referral plans. Demonstrated understanding of instructions, follow-up care, 19:55 Patient left the ED. tl4 Signatures: Hilda Saini RN RN aa5 Abram Cano PA PA cp Atul Emery RN RN tl4 Perri Pantoja ra3 Corrections: (The following items were deleted from the chart) 18:19 18:16 Chief complaint: Patient states: "I was digging a out of my nose and I haven't aa5 stopped bleeding for about 2 or 3 hours now" aa5
--- NOTE | 2023-08-25 19:30 | EDPHYS ---
Physician Documentation [facility] Name: Ronak Lemons III Age: 33 yrs Sex: Male : 1990 Arrival Date: 08/25/2023 Time: 17:50 Bed 9 Private MD: ED Physician Zackery Wilkerson HPI: 08/24 18:40 This 33 yrs old Male presents to ER via Ambulatory with complaints of Nose Bleed - cp x2hrs. 18:40 The patient presents with a nose bleed, that is continuous bright red, causative cp factors include: picking nose. Onset: The symptoms/episode began/occurred 2 hour(s) ago. Associated signs and symptoms: The patient has no apparent associated signs or symptoms. Severity of symptoms: in the emergency department the symptoms have improved moderately. patient with paper towel packing in place to right nasal passage. Historical: - Allergies: 18:16 HYDROCODONE; aa5 - Home Meds: 18:18 None [Active]; aa5 - PMHx: 18:18 None; aa5 - PSHx: 18:16 Appendectomy; aa5 - Immunization history:: Adult Immunizations unknown. - Infectious Disease History:: Denies. - Social history:: Smoking status: Patient denies any tobacco usage or history of. ROS: 18:45 ENT: Positive for nose bleed, Negative for drainage from ear(s), ear pain, sore throat, cp difficulty swallowing, difficulty handling secretions, 18:45 Cardiovascular: Negative for chest pain, cp 18:45 Respiratory: Negative for cough, shortness of breath, wheezing, 18:45 Neuro: Negative for altered mental status, headache, loss of consciousness, syncope, weakness, 18:45 All other systems are negative, Exam: 19:00 Head/Face: Normocephalic, atraumatic. cp 19:00 Constitutional: The patient appears in no acute distress, alert, awake, non-toxic, well developed, well nourished, 19:00 ENT: right nasal passage with paper towel packing in place and after removal noted blood clot right nasal passage with very mild anterior active bleeding noted. pressure placed. 19:00 Chest/axilla: Inspection: normal, 19:00 Cardiovascular: Rate: normal, Rhythm: regular, 19:00 Respiratory: the patient does not display signs of respiratory distress, Respirations: normal, no use of accessory muscles, no retractions, labored breathing, is not present, Breath sounds: are clear throughout, no decreased breath sounds, no stridor, no wheezing, Vital Signs: 18:16 BP 152 / 100; Pulse 97; Resp 18 S; Temp 97.5(TE); Pulse Ox 98% on R/A; Weight 91.63 kg aa5 (R); Height 5 ft. 8 in. (R); 19:54 BP 133 / 80; Pulse 88; Resp 18; Temp 98.1(O); Pulse Ox 100% ; tl4 18:16 Body Mass Index 30.72 (91.63 kg, 172.72 cm) aa5 MDM: 18:18 Patient medically screened. cp 19:30 Data reviewed: vital signs, nurses notes. cp 19:30 Differential diagnosis: foreign body - resolved, foreign body - unresolved, trauma, cp epistaxis r/t trauma, spontaneous epistaxis. I considered the following discharge prescriptions or medication management in the emergency department Afrin applied each nasal passage and active bleeding resolved. Response to treatment: the patient's symptoms have resolved after treatment, and as a result, I will discharge patient. Administered Medications: 19:11 Drug: Oxymetazoline Intranasal Drops (0.05 %) 1 sprays Intranasal once Route: tl4 Intranasal; Site: both nares; Disposition: 08/25 19:00 Co-signature as Attending Physician, Zackery Wilkerson MD I reviewed the patient's care rt provided by the Advanced Practice Provider and agree with the diagnosis and treatment plan. Disposition Summary: 08/25/23 19:30 Discharge Ordered Notes: Location: Home cp Problem: new cp Symptoms: are resolved cp Condition: Stable cp Diagnosis - Epistaxis - resolved cp Followup: cp - With: Linnette Carranza MD - When: 2 - 3 days - Reason: symptoms continue Discharge Instructions: - Discharge Summary Sheet cp - Nosebleed, Adult cp Forms: - Medication Reconciliation Form cp - Antibiotic Education cp - Prescription Opioid Use cp - Patient Portal Instructions cp - Leadership Thank You Letter cp Signatures: Hilda Saini, RN RN aa5 Abram Cano PA PA cp Zackery Wilkerson MD MD rt LogdaAtul howe RN RN tl4
[2023-08-25 20:28] VITALS: BP 133/80; TEMP 98.1; O2SAT 100
== END 2023-08-25 19:55 | disposition home or self-care (01) ==
LOC: ER 17:50
DX: R04.0 Epistaxis (principal)
CPT/HCPCS: 99283